=== PATIENT | female | born 1955 | race Caucasian/White ===

== ENCOUNTER → 2016-10-19 | Outpatient (CLI) | payer BC, SELFPAY ==
--- NOTE | 2016-10-19 11:14 | REPMRS ---
Patient History Patient is postmenopausal. Family history of breast cancer in sister under age 50 and unknown cancer in paternal grandmother. Digital Mammo Screening Bilat: October 19, 2016 - Exam #: [id number] Bilateral CC and MLO view(s) were taken. Technologist: Paulina Peace, Technologist Prior study comparison: November 21, 2013, right breast digital mammo diagnostic unilateral performed at [facility]. November 08, 2013, digital woman screen mammo, performed at [facility]. FINDINGS: The breast tissue is heterogeneously dense. This may lower the sensitivity of mammography. There is a fairly symmetric fibroglandular pattern in both breasts. There has been no interval development of masses, areas of architectural distortion or clusters of microcalcifications typical of malignancy. No significant changes when compared with prior studies. ASSESSMENT: BI-RADS/ACR category 2 mammogram. Benign finding(s). Given the family history and dense breast parenchyma, MRI of the breasts is suggested to rule out an occult lesion. Recommendation Routine screening mammogram of both breasts in 1 year (for women over age 40). This mammogram was interpreted with the aid of an FDA-approved computer-aided dectection system. Electronically Signed By: Peter Cheung MD 10/19/16 [id number]
== END ==
LOC: M RAD 09:49
PROVIDERS: ATTEND Internal Medicine
DX: Z12.31 Encounter for screening mammogram for malignant neoplasm of breast (principal); Z78.0 Asymptomatic menopausal state; Z80.3 Family history of malignant neoplasm of breast; R92.8 Other abnormal and inconclusive findings on diagnostic imaging of breast

== ENCOUNTER → 2018-10-26 | Outpatient (REF) | payer BC, MEDICARE | LOC: M LAB REF 12:24 | PROVIDERS: ATTEND Internal Medicine | DX: E03.9 Hypothyroidism, unspecified (principal) ==

== ENCOUNTER → 2019-06-04 | Outpatient (REF) | payer MEDICARE ==
[2019-06-06 10:55] LABS: HEPATITIS A ANTIBODY IGM NEGATIVE (NEGATIVE); HEPATITIS B CORE ANTIBODY IGM NEGATIVE (NEGATIVE); HEPATITIS B SURFACE ANTIGEN NEGATIVE (NEGATIVE); HEPATITIS C VIRUS ABY INDEX < 0.0 INDEX (<0.8)
== END ==
LOC: M LAB REF 16:25
PROVIDERS: ATTEND Internal Medicine
DX: R10.9 Unspecified abdominal pain (principal)

== ENCOUNTER → 2020-01-31 | Outpatient (CLI) | payer MEDICARE ==
[~2020-01-31] MED LIST: BENA25CA4 PO; CITRTAB18 PO; LEVO50TA5 PO; MULTCAP PO; OMEP10CASR PO; VITA250T4 PO
--- NOTE | 2020-02-01 01:52 | ECGEPIP ---
[facility] Test Date: 2020-01-31 Pat Name: LATOYA NUNEZ Department: Room: - Gender: Female Embedded Software Manager: KYRA : 1955 Requested By: ADY Lombardi Order Number: [id number] Reading MD: René Velasco Measurements Intervals [place] Rate: 60 P: 59 GA: 166 QRS: 34 QRSD: 78 T: 53 QT: 380 QTc: 382 Interpretive Statements SINUS RHYTHM LOW QRS VOLTAGE IN PRECORDIAL LEADS Comparison tracing not on file Baseline artifact Electronically Signed on 02-01-2020 1:51:41 EST by René Velasco
== END ==
LOC: M EKG 10:28
PROVIDERS: ATTEND Anesthesiology
DX: Z01.818 Encounter for other preprocedural examination (principal); E03.9 Hypothyroidism, unspecified

== ENCOUNTER → 2020-02-07 | Outpatient (CLI) | payer MEDICARE | LOC: M LABSMTC 10:12 | PROVIDERS: ATTEND Anesthesiology | DX: Z01.812 Encounter for preprocedural laboratory examination (principal); Z20.828 Contact with and (suspected) exposure to other viral communicable diseases ==

== ENCOUNTER 2020-02-12 06:25 | Day surgery (SDC) | payer MEDICARE ==
[~2020-02-12] VITALS: Ht 170.2 cm; Wt 60.9 kg
[~2020-02-12 06:25] MED LIST changes: +LR 1,000 ML IV ONE; +ceFAZolin SOD 2 GM in IV 1 EA IV ONE
[2020-02-12] MEDS ORDERED: METOCLOPRAMIDE INJ 10MG/2ML VIAL (J2765 PER 1) As Ordered ONE (07:29)
[2020-02-12] MEDS ORDERED: ONDANSETRON 4MG/2ML VIAL As Ordered ONE (07:29)
[2020-02-12] MEDS ORDERED: propofoL 200 MG/20 ML VIAL As Ordered ONE (07:29)
[2020-02-12] MEDS ORDERED: ROCURONIUM BROMIDE 50 MG/5 ML VIAL As Ordered ONE (07:29)
[2020-02-12] MEDS ORDERED: LIDOCAINE 2% 100MG/5ML SDV (FOR ANES.) As Ordered ONE (07:29)
[2020-02-12] MEDS ORDERED: MIDAZOLAM INJ 2MG/2ML VIAL (J2250 PER 1MG) As Ordered ONE (07:29)
[2020-02-12] MEDS ORDERED: fentaNYL 100 MCG/2 ML INJECTION (J3010) As Ordered ONE (07:30)
[2020-02-12] MEDS ORDERED: BUPIVACAINE HCL 0.25% 10ML VIAL As Ordered ONE (08:58)
[2020-02-12] MEDS ORDERED: LIDOCAINE W/EPINEPHRINE 1% 20ML VIAL As Ordered ONE (08:58)
[2020-02-12] MEDS ORDERED: dexameTHASONE 4 MG/ML 1ML VIAL (J1100 PER 1MG) As Ordered ONE (10:08)
[2020-02-12] MEDS ORDERED: KETOROLAC 60MG 2ML VIAL As Ordered ONE (10:08)
[2020-02-12] MEDS ORDERED: SUGAMMADEX SODIUM 500 MG/5 ML VIAL (BRIDION) As Ordered ONE (10:08)
[2020-02-12] MEDS ORDERED: ONDANSETRON 4MG/2ML VIAL IV PRN (10:45)
[2020-02-12] MEDS ORDERED: oxyCODONE 5MG TAB PO PRN (10:45)
[2020-02-12] MEDS ORDERED: HYDROMORPHONE HCL 0.5 MG/ 0.5 ML SYRINGE (J1170 PER 1) IV PRN (10:45)
[2020-02-12] MEDS ORDERED: LR 1,000 ML IV SCH (10:45)
[2020-02-12] MEDS ORDERED: NS 1,000 ML IV SCH (10:45)
[2020-02-12] MEDS ORDERED: traMADol 50 MG TAB PO PRN (10:45)
[2020-02-12] MEDS ORDERED: fentaNYL 100 MCG/2 ML INJECTION (J3010) IV PRN (10:45)
[2020-02-12] MEDS ORDERED: PHENYLephrine HCL 500 MCG/5 ML (100MCG/ML) SYRINGE (J2370) As Ordered ONE (11:28)
[2020-02-12] MEDS ORDERED: ACETAMINOPHEN 1000MG 100ML IV BTL (OFIRMEV) (J0131 PER 10MG) As Ordered ONE (11:28)
[2020-02-12 13:20] VITALS: BP 121/60
--- NOTE | 2020-02-13 10:25 | RO ---
DATE OF OPERATION: 02/12/2020 PREOPERATIVE DIAGNOSIS: Symptomatic gallstones. POSTOPERATIVE DIAGNOSIS: Symptomatic gallstones. PROCEDURE: Laparoscopic cholecystectomy. SURGEON: Alphonse Rowell Jr., MD. ANESTHESIA: General endotracheal anesthesia. EBL: Minimal. FLUIDS: Crystalloid. BRIEF PROCEDURE SUMMARY: Patient was brought to the operating room and was given general anesthesia. After adequate anesthesia and preoperative antibiotics were given, the patient was prepped and draped in the usual sterile fashion. An infraumbilical incision was made with a skin knife. Blunt dissection was carried down to fascia. Fascia was entered with Veress needle and insufflate to 15 mmHg. Dilating 10 mm trocar was placed, and under direct visualization, an epigastric and two lateral trocars were placed. The gallbladder was grasped, retracted superiorly, and the peritoneum was scored on the lateral aspect of the gallbladder down across the neck and then on the medial aspect. A good window behind the neck of the gallbladder was created, and then further dissection towards the neck/cystic duct area was performed revealing the cystic duct actually coming off proximally on the neck of the gallbladder, and once these two were isolated, this was clipped proximally and distally and transected. The gallbladder itself was further dissected and mobilized, and cyst duct was well visualized and followed down towards the common bile duct that could be visualized medially. Fortunately she was a very thin individual and I could see where it appeared the cystic duct appeared to intersect with the common bile duct and thus staying away from this area and staying on the cystic duct/neck of the gallbladder junction area. The clips were placed on this proximally and distally and transected. The gallbladder was removed from the gallbladder bed, placed in an Endo-Catch bag, and brought out through the umbilicus. The right upper quadrant was copiously irrigated until clear. Blunt trocar was removed under direct visualization. 0 Vicryl was used to close the fascia at the umbilicus, and all incisions were closed with 4-0 Vicryl. Steri-Strips and dry sterile dressing was applied. The patient was awakened, extubated, and brought to the recovery room awake, alert, and hemodynamically stable. Sponge and needle counts were correct x2. MTDD
== END 2020-02-12 13:50 | disposition home or self-care (01) ==
LOC: M SDC 06:25
PROVIDERS: ATTEND Surgery
DX: K80.10 Calculus of gallbladder with chronic cholecystitis without obstruction (principal); E03.9 Hypothyroidism, unspecified; J30.89 Other allergic rhinitis; Z78.0 Asymptomatic menopausal state; Z79.899 Other long term (current) drug therapy
CPT/HCPCS: 47562; 88304; J0690; J1100; J1885; J2250; J2405; J2765; J3010

== ENCOUNTER → 2021-07-15 | Outpatient (CLI) | payer MEDICARE ==
[~2021-07-15] MED LIST changes: -LR 1,000 ML IV ONE; -ceFAZolin SOD 2 GM in IV 1 EA IV ONE
== END ==
LOC: M WHC 10:01
PROVIDERS: ATTEND Internal Medicine
DX: Z12.31 Encounter for screening mammogram for malignant neoplasm of breast (principal); M81.0 Age-related osteoporosis without current pathological fracture

== ENCOUNTER → 2022-09-06 | Outpatient (CLI) | payer MEDICARE | LOC: M WHC 14:34 | PROVIDERS: ATTEND Internal Medicine | DX: Z12.31 Encounter for screening mammogram for malignant neoplasm of breast (principal) ==

== ENCOUNTER → 2022-10-01 | Outpatient (REF) | LOC: M LAB 12:01 | PROVIDERS: ATTEND Nurse Practitioner Adult Health | DX: Z00.00 Encounter for general adult medical examination without abnormal findings (principal) ==

== ENCOUNTER → 2023-12-02 | Outpatient (CLI) | payer MEDICARE ==
[~2023-12-02] MED LIST changes: +VITA250T27 PO; -VITA250T4 PO
== END ==
LOC: M WHC 10:09
PROVIDERS: ATTEND Internal Medicine
DX: Z12.31 Encounter for screening mammogram for malignant neoplasm of breast (principal); M85.89 Other specified disorders of bone density and structure, multiple sites; R92.343 Mammographic extreme density, bilateral breasts

== ENCOUNTER → 2024-12-25 | Outpatient (CLI) | payer MEDICARE | LOC: M WHC 08:35 | PROVIDERS: ATTEND Internal Medicine | DX: Z12.31 Encounter for screening mammogram for malignant neoplasm of breast (principal) ==